=== PATIENT | female | born 1970 | race Caucasian/White ===

== ENCOUNTER → 2018-12-29 07:38 | Outpatient (CLI) | payer MEDICARE, MEDICAID, SELFPAY ==
[2018-12-29 08:39] LABS: Basophils # 0.1 K/mm3 (0-0.2); Basophils % 0.6 % (0.1-2.0); Eosinophils # 0.2 K/mm3 (0.0-0.4); Eosinophils % 1.8 % (0.1-12.0); Hematocrit 40.3 % (37.0-47.0); Hemoglobin 11.8 g/dL (12.2-16.2); Lymphocytes # 0.9 K/mm3 (0.7-4.5); Lymphocytes % 11.2 % (10-50); Mean Corpuscular HGB Conc 29.2 g/dL (31.8-35.4); Mean Corpuscular Hemoglobin 29.2 pg (27.0-31.2); Mean Corpuscular Volume 100.1 fl (81-99); Mean Platelet Volume 7.8 fl (7.4-10.4); Monocytes # 0.6 K/mm3 (0.1-1.0); Monocytes % 6.6 % (1.7-9.3); Neutrophils # 6.7 K/mm3 (1.8-7.8); Neutrophils % 79.8 % (37.0-80.0); Platelet Count 281 K/mm3 (142-424); Red Blood Count 4.03 M/mm3 (4.20-5.40); Red Cell Distribution Width 16.4 % (11.5-17.5); White Blood Count 8.3 K/mm3 (4.8-10.8)
[2018-12-29 09:30] LABS: Anion Gap 13.8 mEq/L (5-15); Blood Urea Nitrogen 25 mg/dL (7-18); Calcium 8.3 mg/dL (8.5-10.1); Carbon Dioxide 25 mmol/L (21.0-32.0); Chloride 100 mmol/L (98-107); Creatinine,Serum 3.36 mg/dL (0.55-1.02); Estimated Glomerular Filt Rate 15 ml/min (>60); GFR (African American) 18 ML/MIN (>60); Glucose 354 mg/dL (74-106); Potassium 3.8 mmoL/L (3.5-5.1); Sodium 135 mmol/L (136-145)
== END ==
PROVIDERS: Visit Provider Internal Medicine
DX: Z09 Encounter for follow-up examination after completed treatment for conditions other than malignant neoplasm (principal); I25.10 Atherosclerotic heart disease of native coronary artery without angina pectoris
CPT/HCPCS: 36415; 80048; 85025

== ENCOUNTER → 2020-01-25 09:55 | Outpatient (CLI) | payer MEDICARE, MEDICAID, SELFPAY ==
--- NOTE | 2020-01-25 09:58 | CA_ITS ---
APPROVED REPORT EXAM: Comprehensive 2D, Doppler, and color-flow Echocardiogram Scale Adjuster: Johanna Morfin RDCS Ht: 5 ft 4 in Wt: 152lbs BSA: 1.74 BP: 110/60 mmHg Indications: CHF,CM,,DM,CVA,HTN 2D Dimensions LVOT 1.85 cm (M/F) 1.5-2.5 M-Mode Dimensions RVDd 2.97 cm (0.9-2.6) LVDd 6.61 cm (3.5-5.7) LVDs 5.51 cm (3.5-5.7) IVSd 1.31 cm (0.6-1.1) PWd 1.19 cm (0.6-1.1) EF (Teich) 34.00% FS 16.60% EDV (Teich) 224.40 mL ESV (Teich) 148.00 mL LV Diastology E/A Ratio 2.85 Aortic Valve LVOT Max 96.00 (70-110 cm/s) LVOT VTI 23.04 cm Mitral Valve MV A Velocity 43.00 (40-130 cm/s) Left Ventricle Left atrium is mildly enlarged, left ventricle is normal size, mild concentric left ventricular hypertrophy, visually estimated ejection fraction approximately 40 to 45%, there is moderate hypokinesis involving the posterolateral wall. Diastolic parameters are inconclusive. Right Ventricle Right atrium and right ventricular normal size and contractility. Aortic Valve Aortic valve is thickened and calcified with severe restriction in the leaflet mobility, the mean gradient across valve is 36 mmHg, valve area is 0.8 cm??? represents severe aortic stenosis, there is mild aortic insufficiency. Mitral Valve Mitral valve leaflets are minimally thickened, there is mild mitral regurgitation. Tricuspid Valve Tricuspid valve is grossly normal, there is mild tricuspid regurgitation, tricuspid regurgitation jet velocity is inadequate for calculation of the right ventricular systolic pressure. Pulmonic Valve Pulmonic valve is poorly visualized. Great Vessels Aortic root is normal size. Pericardium No significant pericardial effusion noted. Conclusion 1. Mildly enlarged left atrium, normal left ventricular size, mild concentric left ventricular hypertrophy, visually estimated ejection fraction approximately 40 to 45% with segmental wall motion abnormality described above, diastolic parameters are inconclusive. 2. Thickened and calcified aortic valve with valve area 1.8 cm quadruplet and severe aortic stenosis, there is mild aortic insufficiency. 3. Mild mitral and tricuspid regurgitation. 4. No significant pericardial effusion noted. Electronically signed by : Yefri Herring, 01/25/2020 19:48:26
== END ==
PROVIDERS: PCP Nurse Practitioner Family; Visit Provider Nurse Practitioner Family
DX: E78.5 Hyperlipidemia, unspecified (principal); F17.200 Nicotine dependence, unspecified, uncomplicated; I25.10 Atherosclerotic heart disease of native coronary artery without angina pectoris; I27.20 Pulmonary hypertension, unspecified; I50.9 Heart failure, unspecified; I65.29 Occlusion and stenosis of unspecified carotid artery; I77.9 Disorder of arteries and arterioles, unspecified; N18.6 End stage renal disease; Z99.2 Dependence on renal dialysis
CPT/HCPCS: 93306

== ENCOUNTER → 2020-07-25 15:28 | Outpatient (CLI) | payer MEDICARE, MEDICAID, SELFPAY ==
--- NOTE | 2020-07-25 15:35 | XR_ITS ---
PROCEDURE: XR CHEST 2V CLINICAL HISTORY: COPD Shortness of breath COMPARISON: No exams were available for comparison FINDINGS: There is cardiomegaly with mild pulmonary venous congestion. Loop recorder device is present along the left heart border anteriorly There are small bilateral pleural effusions with increased density in the lower lobes which may be due to pulmonary edema. Pneumonia is an additional consideration. Coronary artery stents are present. No acute bony abnormalities. IMPRESSION: CHF with small bilateral effusions with bilateral lower lobe infiltrate or edema Dictated by: Jacques Gomez MD 07/25/2020 17:49 Jacques Gomez MD in [place] 07/25/2020 17:49
== END ==
PROVIDERS: PCP Nurse Practitioner Family; Visit Provider Internal Medicine Pulmonary Disease
DX: J44.9 Chronic obstructive pulmonary disease, unspecified (principal)
CPT/HCPCS: 71046

== ENCOUNTER → 2020-10-10 14:32 | Outpatient (CLI) | payer MEDICARE, MEDICAID, SELFPAY ==
[2020-10-10 16:15] VITALS: PULSE 79; PULSE 82
== END ==
PROVIDERS: PCP Nurse Practitioner Family; Visit Provider Internal Medicine Pulmonary Disease
DX: R06.09 Other forms of dyspnea (principal)
CPT/HCPCS: 94060; 94640; 94727; 94729

== ENCOUNTER 2020-11-21 09:20 | Day surgery (SDC) | payer MEDICARE, MEDICAID, SELFPAY ==
[2020-11-21] VITALS (19 sets, daily range): BP systolic 99–165; BP diastolic 40–84; PULSE 62–70; RESP 17–20; TEMP 36.8; O2SAT 96–100; BMI 33.1
--- NOTE | 2020-11-21 | IR_ITS ---
APPROVED REPORT Patient Location: Outpatient PROCEDURES Left heart catheterization Left ventriculogram Selective coronary angiogram Catheter placed in the left common iliac artery Left common iliac artery antegrade angiogram with unilateral runoff to the left foot INDICATION Known coronary disease, Systolic congestive heart failure, Class IV angina pectoris, Peripheral artery disease, Mateo claudication class V, Poorly healing lower extremity ulcer with necrotic stone Informed consent was obtained prior to the procedure. COMPLICATIONS None Estimated Blood Loss: less than 10ml TECHNIQUE One percent lidocaine was used to anesthetize the right groin. The right femoral artery was accessed via the Seldinger technique. A 5-Kyrgyz sheath was placed in the right femoral artery. The JL-4 and JR-4 catheter was also used to perform left heart catheterization left ventriculogram and selective coronary angiogram. At the end the diagnostic cardiac catheterization a rim catheter was placed under fluoroscopic guidance in the left common iliac artery. Unilateral runoff was performed. After the diagnostic angiogram the apparatus was removed the patient was transferred to the postop holding in stable addition for sheath removal ANGIOGRAPHIC RESULTS The left main artery Normal The left anterior descending artery Has a normal ostial segment and then a stent is present in the proximal segment which is widely patent free of in-stent restenosis with excellent proximal distal transitioning. The mid LAD has 30% stenoses. A moderate to large first diagonal artery has an ostial 80 to 90% stenosis however THAO-3 flow was present down this 2-1/2 mm diagonal artery The circumflex artery Is a dominant vessel and has mild 20% stenoses in the proximal and mid segment. Distally the terminal obtuse marginal artery has a 60% stenosis however the vessel was 2 mm in diameter The right coronary artery Is a nondominant vessel not supplying the left ventricle has proximal 70% stenosis mid vessel 90% stenosis at a 1 mm diameter vessel The WILSON ventriculogram reveals Dilated ventricle with ejection fraction of 40% The left ventricular end-diastolic pressure Severely elevated at 40 to 45 mmHg Left common iliac artery is widely patent. The left internal iliac artery is occluded. The left external iliac artery is widely patent. The left common femoral artery is widely patent. The left superficial femoral artery is widely patent with excellent antegrade flow. There are mild 30% stenoses. The left popliteal artery is widely patent. The left anterior tibialis artery is patent in the proximal segment and then subtotally occludes distally but does appear to supply the left foot. The left peroneal artery and left posterior tibialis arteries are proximally patent but have slow subtotal occlusion distally indicative of small vessel disease IMPRESSION Patent coronary arteries as described above Dilated ventricle with severely elevated LVEDP Patent peripheral arteries as described above with small vessel distal vasculopathy which is not amenable to either surgical nor percutaneous revascularization PLAN 1. Continue medical management for coronary disease 2. Patient's shortness of breath and symptoms stem from elevated LVEDP. Afterload reducing medicines will be reinstituted such as Diovan 160 p.o. twice daily 3. Patient may benefit from additional fluid being removed with dialysis 4. Medical management for peripheral artery disease stemming from small vessel distal vasculopathy Electronically signed by : Go Moss, 11/21/2020 13:04:32
[2020-11-21 10:03] LABS: Chloride 93 mmol/L (98-107)
[2020-11-21 10:04] LABS: Sodium 134 mmol/L (136-145)
[2020-11-21 10:06] LABS: Blood Urea Nitrogen 23 mg/dl (7-17); Creatinine Clearance Estimated 24 mL/min (50-200); Estimated Glomerular Filt Rate 12 ml/min (>60); GFR (African American) 14 ML/MIN (>60)
[2020-11-21 10:07] LABS: Calcium 9.8 mg/dl (8.4-10.2); Carbon Dioxide 28 mmol/L (22.0-30.0); Glucose 205 mg/dl (74-100)
[2020-11-21 10:11] LABS: Basophils # 0.1 K/mm3 (0-0.2); Basophils % 0.7 % (0.1-2.0); Eosinophils # 0.2 K/mm3 (0.0-0.4); Eosinophils % 2.3 % (0.1-12.0); Hematocrit 43.9 % (37.0-47.0); Hemoglobin 12.9 g/dL (12.2-16.2); Lymphocytes # 0.9 K/mm3 (0.7-4.5); Lymphocytes % 10.1 % (10-50); Mean Corpuscular HGB Conc 29.5 g/dL (31.8-35.4); Mean Corpuscular Hemoglobin 32.8 pg (27.0-31.2); Mean Corpuscular Volume 111.2 fl (81-99); Mean Platelet Volume 8.6 fl (7.4-10.4); Monocytes # 0.7 K/mm3 (0.1-1.0); Monocytes % 8.2 % (1.7-9.3); Neutrophils # 6.9 K/mm3 (1.8-7.8); Neutrophils % 78.8 % (37.0-80.0); Platelet Count 241 K/mm3 (142-424); Red Blood Count 3.94 M/mm3 (4.20-5.40); Red Cell Distribution Width 18.4 % (11.5-17.5); White Blood Count 8.7 K/mm3 (4.8-10.8)
[2020-11-21 10:44] LABS: HCG Qualitative, Serum Negative (Negative)
== END 2020-11-21 16:15 | disposition home or self-care (01) ==
LOC: CATHLAB 09:22
PROVIDERS: PCP Nurse Practitioner Family; Visit Provider Internal Medicine
DX: E11.51 Type 2 diabetes mellitus with diabetic peripheral angiopathy without gangrene (principal); I65.23 Occlusion and stenosis of bilateral carotid arteries; N18.6 End stage renal disease; I27.20 Pulmonary hypertension, unspecified; I25.119 Atherosclerotic heart disease of native coronary artery with unspecified angina pectoris; I35.0 Nonrheumatic aortic (valve) stenosis; I13.2 Hypertensive heart and chronic kidney disease with heart failure and with stage 5 chronic kidney disease, or end stage renal disease; Z99.2 Dependence on renal dialysis; F17.200 Nicotine dependence, unspecified, uncomplicated; E78.2 Mixed hyperlipidemia; I73.9 Peripheral vascular disease, unspecified; Z71.6 Tobacco abuse counseling; E11.22 Type 2 diabetes mellitus with diabetic chronic kidney disease; Z79.4 Long term (current) use of insulin; Z79.82 Long term (current) use of aspirin; I48.0 Paroxysmal atrial fibrillation; Z79.01 Long term (current) use of anticoagulants; L97.909 Non-pressure chronic ulcer of unspecified part of unspecified lower leg with unspecified severity; Z79.899 Other long term (current) drug therapy; I50.20 Unspecified systolic (congestive) heart failure
CPT/HCPCS: 80048; 84703; 85025; 93458; 99152; C1725; C1769; C1894; G0278; J1644; Q9966; Q9967

== ENCOUNTER → 2021-01-09 14:59 | Outpatient (CLI) | payer MEDICARE, MEDICAID, SELFPAY ==
--- NOTE | 2021-01-09 14:59 | CT_ITS ---
PROCEDURE INFORMATION: Exam: CT Chest Without Contrast; Diagnostic; High Resolution Exam date and time: 01/09/2021 2:59 PM Age: 50 years old Clinical indication: Shortness of breath and other: Copd, on oxygen all the time; Prior surgery; Surgery date: 6+ months TECHNIQUE: Imaging protocol: Diagnostic computed tomography of the chest without contrast. Exam was performed with high resolution protocol. Radiation optimization: All CT scans at this facility use at least one of these dose optimization techniques: automated exposure control; mA and/or kV adjustment per patient size (includes targeted exams where dose is matched to clinical indication); or iterative reconstruction. COMPARISON: DX XR CHEST 2V 07/25/2020 3:39 PM FINDINGS: Tubes, catheters and devices: Loop recorder in the soft tissues anterior left chest Lungs: Patchy bilateral opacities peripherally may represent multifocal pneumonia. Differential includes lung cancer . Diffuse bilateral ground-glass opacities may represent edema.. Pleural space: Small bilateral pleural effusions.. Heart: Coronary artery calcifications may indicate coronary artery disease. There is calcification of the aortic valve annulus. There is calcification of the mitral valve annulus. Cardiomegaly Aorta: Unremarkable. No aortic aneurysm. Lymph nodes: Pathologic node anterior to the vale 17 x 11 mm Gallbladder and bile ducts: Gallstone in the gallbladder Kidneys and ureters: Bilateral renal atrophy; Non obstructing renal calculi. Bones/joints: T6 compression fracture of unknown age No acute fracture. Soft tissues: Unremarkable. Other findings: Stent in the a vascular structure anterior to the right clavicle IMPRESSION: 1. Patchy bilateral opacities peripherally may represent multifocal pneumonia. Differential includes lung cancer . Recommend short term follow-up to document resolution. 2. Small bilateral pleural effusions.. 3. Diffuse bilateral ground-glass opacities may represent edema..
== END ==
PROVIDERS: PCP Nurse Practitioner Family; Visit Provider Internal Medicine Pulmonary Disease
DX: J84.9 Interstitial pulmonary disease, unspecified (principal); F17.210 Nicotine dependence, cigarettes, uncomplicated
CPT/HCPCS: 71250

== ENCOUNTER 2021-05-28 17:32 | Emergency (ER) | payer MEDICARE, MEDICAID, SELFPAY ==
[2021-05-28 17:34] VITALS: BP 116/48; PULSE 91; RESP 20; TEMP 36.8; O2SAT 97; BMI 30.9
--- NOTE | 2021-05-28 18:05 | HMH.EDGENADL ---
ED Disposition Clinical Impression: Gastritis Qualifiers: Gastritis type: unspecified gastritis Chronicity: acute Gastritis bleeding: without bleeding Qualified Code(s): K29.00 - Acute gastritis without bleeding Disposition: Home, Self-Care Condition on Discharge: Good Instructions: DI for Gastritis Prescriptions: Ondansetron [Zofran 4mg ODT] 4 mg PO BIDP PRN #10 tab PRN Reason: Nausea Transmission Status: Pending to [facility] Referrals: Jackie Morris [Primary Care Provider] - - Critical Care Critical Care Time: No Attestation: On 05/28/21, the high probability of a clinically significant, sudden or life threatening deterioration of the following system(s) required my full and direct attention, intervention and personal management. The time I documented below is in addition to time spent performing reported procedures but includes the following listed in this critical care notation. Medical Decision Making - Medical Records Medical records reviewed: Yes: I reviewed the patient's medical records. - Samule Inquiry Pt receiving controlled substance: No Vital Signs: 05/28/21 17:34 Temperature 98.3 F Temperature Source Oral Pulse Rate [Left Radial] 91 H Respiratory Rate 20 Blood Pressure [Left Arm] 116/48 L Blood Pressure Mean [Left Arm] 70 Blood Pressure Source [Left Arm] Automatic Cuff Blood Pressure Position [Left Arm] Sitting 02 Sat by Pulse Oximetry 97 Oxygen Delivery Method Room Air - Lab Data Lab Results 05/28/21 18:02: WBC 8.2, RBC 2.68 L, Hgb 9.1 L, Hct 30.7 L, MCV 114.5 H, MCH 34.0 H, MCHC 29.7 L, RDW 17.3, Plt Count 336, MPV 8.8, Neut % (Auto) 84.6 H, Lymph % (Auto) 7.7 L, [place] % (Auto) 5.4, Eos % (Auto) 1.7, Baso % (Auto) 0.6, Neut # (Auto) 6.9, Lymph # (Auto) 0.6 L, [place] # (Auto) 0.4, Eos # (Auto) 0.1, Baso # (Auto) 0.1 05/28/21 18:02: Sodium 139, Potassium 3.2 L, Chloride 93 L, Carbon Dioxide 39 H, Anion Gap 10.2, BUN 9, Creatinine 1.90 H, Estimated Creat Clear 46, Estimated GFR 28 L, Est GFR ( Amer) 34 L, Glucose 68 L, Calcium 9.2, Total Bilirubin 0.5, AST 40 H, ALT 14, Alkaline Phosphatase 168 H, Total Protein 7.9, Albumin 4.0, Globulin 3.9 H, Albumin/Globulin Ratio 1.0 L, Lipase 49 Result diagrams: 05/28/21 18:02 05/28/21 18:02 Orders (Tests/Meds): ED MEDICATIONS Discontinued Medications Generic Name Dose Route Start Last Admin Trade Name Jessica PRN Reason Stop Dose Admin Promethazine HCl 12.5 mg 05/28/21 17:59 05/28/21 18:21 Promethazine Hcl 25mg/Ml 1ml Vial IV 05/28/21 18:00 12.5 mg ONCE ONE Administration Sodium Chloride 500 ml 05/28/21 17:59 05/28/21 18:21 Sodium Chloride 0.9% 500ml Bag IV 05/28/21 18:00 500 ml ONCE STA Administration Sodium Chloride 25 ml 05/28/21 17:59 05/28/21 18:21 Sodium Chloride 0.9% 25ml Bag IV 05/28/21 18:00 25 ml ONCE ONE Administration - Reevaluation(s) Time: 19:17 Reevaluation #1: On reevaluation, patient is feeling much better. Repeat abdominal examination is benign. Nausea is improved. He is tolerating oral intake without any significant difficulties. Repeat abdominal examination does not show any evidence of acute abdomen. Findings consistent with gastritis. Patient follow-up with PCP in 48 hours. Given strict return precautions. Verbalized understanding. Medical Decision Narrative: 50-year-old female presented to the emergency department with an episode of vomiting after her dialysis treatment. Patient is complaining some mild nausea at this time. Abdomen is benign. No significant tenderness. Patient be provided antiemetics. Work-up initiated. General Adult HPI - General Chief complaint: Nausea/Vomiting/Diarrhea Stated complaint: vomiting blood Time Seen by Provider: 05/28/21 17:40 Mode of Arrival: Wheelchair Limitations: No Limitations Description of Symptoms (Recalled from ER Triage Doc. by RN): Pt c/o vomiting blood. Pt was at dialysis today and states
[2021-05-28 18:21] LABS: Basophils # 0.1 K/mm3 (0-0.2); Basophils % 0.6 % (0.1-2.0); Eosinophils # 0.1 K/mm3 (0.0-0.4); Eosinophils % 1.7 % (0.1-12.0); Hematocrit 30.7 % (37.0-47.0); Hemoglobin 9.1 g/dL (12.2-16.2); Lymphocytes # 0.6 K/mm3 (0.7-4.5); Lymphocytes % 7.7 % (10-50); Mean Corpuscular HGB Conc 29.7 g/dL (31.8-35.4); Mean Corpuscular Volume 114.5 fl (81-99); Mean Platelet Volume 8.8 fl (7.4-10.4); Monocytes # 0.4 K/mm3 (0.1-1.0); Monocytes % 5.4 % (1.7-9.3); Neutrophils # 6.9 K/mm3 (1.8-7.8); Neutrophils % 84.6 % (37.0-80.0); Platelet Count 336 K/mm3 (142-424); Red Blood Count 2.68 M/mm3 (4.20-5.40); Red Cell Distribution Width 17.3 % (11.5-17.5); White Blood Count 8.2 K/mm3 (4.8-10.8)
[2021-05-28 18:29] LABS: Chloride 93 mmol/L (98-107); Potassium 3.2 mmoL/L (3.5-5.1); Sodium 139 mmol/L (136-145)
[2021-05-28 18:32] LABS: Alanine Aminotransferase 14 U/L (12-78); Alkaline Phosphatase 168 U/L (38-126); Anion Gap 10.2 mEq/L (5-15); Aspartate Amino Transferase 40 U/L (14-36); Bilirubin,Total 0.5 mg/dl (0.2-1.3); Blood Urea Nitrogen 9 mg/dl (7-17); Calcium 9.2 mg/dl (8.4-10.2); Carbon Dioxide 39 mmol/L (22.0-30.0); Creatinine Clearance Estimated 46 mL/min (50-200); Estimated Glomerular Filt Rate 28 ml/min (>60); GFR (African American) 34 ML/MIN (>60); Globulin 3.9 g/dL (1.3-3.2); Glucose 68 mg/dl (74-100); Lipase 49 U/L (23-300); Total Protein,Serum 7.9 g/dl (6.3-8.2)
[2021-05-28 19:19] VITALS: BP 116/50; PULSE 90; RESP 20; TEMP 36.7; O2SAT 98
== END 2021-05-28 19:33 | disposition home or self-care (01) ==
PROVIDERS: Emergency Provider Emergency Medicine; PCP Nurse Practitioner Family
DX: K29.70 Gastritis, unspecified, without bleeding (principal); N18.6 End stage renal disease; Z99.2 Dependence on renal dialysis; K21.9 Gastro-esophageal reflux disease without esophagitis; E78.5 Hyperlipidemia, unspecified; I10 Essential (primary) hypertension; Z87.891 Personal history of nicotine dependence; E03.9 Hypothyroidism, unspecified; Z79.899 Other long term (current) drug therapy
CPT/HCPCS: 80053; 83690; 85025; 96374; 96375; 99282